=== PATIENT | male | born 1950 | race Caucasian/White ===

== ENCOUNTER 2016-09-16 09:47 | Emergency (ER) | payer MEDICARE, BC ==
[~2016-09-16] VITALS: Ht 177.8 cm; Wt 90.0 kg
[2016-09-16 09:52] VITALS: BP 166/105; PULSE 79; RESP 16; TEMP 98.2; O2SAT 98
[2016-09-16 10:15] LABS: BLOOD, URINE LARGE (NEG); GLUCOSE,URINE NEG (NEG); KETONE, URINE NEG (NEG); PH, URINE 5.5 (5.0-8.5)
[2016-09-16 10:18] LABS: METHOD OF COLLECTION CLEAN CATCH; NITRITE,URINE POS (NEG); URINE COLOR RED (YELLW/STRAW)
[2016-09-16 10:21] LABS: RBC, URINE INNUM /hpf (0-3); SQUAMOUS EPITHELIAL CELL URINE > 8 /hpf (0-5)
--- NOTE | 2016-09-16 10:21 | PD ---
HPI Chief Complaint: Complaint Time Seen by Provider: 10:06 Travel History International Travel<30 days: No Contact w/Intl Traveler<30days: No Traveled to known affect area: No History of Present Illness HPI 66 years old male complains of hematuria. Patient has history of BPH status post TURP procedure September 02, 2016 by urologist in [place]. Patient has history of atrial fibrillation on Xarelto. Patient started noticing hematuria since last night. Patient denies any headache. Patient denies any chest pain or shortness of breath. Patient denies abdominal pain. Patient denies any back pain. Patient denies any dysuria or frequency. Patient denies any fever chills. PFSH Past Medical History Hx Anticoagulant Therapy: Yes (XARELTO) Cardiovascular Problems: Yes (HTN, CHOL, A. FIB) Diabetes: Yes Social History Tobacco Use: No Allergies-Medications (Allergen,Severity, Reaction): Coded Allergies: No Known Allergies (Unverified , 09/16/16) Reported Meds & Prescriptions Reported Meds & Active Scripts Active Reported Lantus Inj (Insulin Glargine) 100 Unit/Ml Inj 60 Units SQ HS Tamsulosin (Tamsulosin HCl) 0.4 Mg Cap 0.4 Mg PO HS Nitroglycerin Patch 24 HR (Nitroglycerin) 0.1 Mg/Hr Patch 0.1 Mg T-DERMAL DAILY Omeprazole 20 Mg Tab 20 Mg PO DAILY Lovastatin 40 Mg Tab 40 Mg PO DAILY Metformin (Metformin HCl) 500 Mg Tab 500 Mg PO BIDPC With meals Xarelto (Rivaroxaban) 20 Mg Tab 20 Mg PO DAILY Metoprolol Tartrate 25 Mg Tab 25 Mg PO BID Review of Systems General / Constitutional: No: Fever Eyes: No: Visual changes HENT: No: Headaches Cardiovascular: No: Chest Pain or Discomfort Respiratory: No: Shortness of Breath Gastrointestinal: No: Abdominal Pain Genitourinary: Positive: Hematuria, No: Dysuria Musculoskeletal: No: Pain Skin: No Rash Neurologic: No: Weakness Psychiatric: No: Depression Endocrine: No: Polydipsia Hematologic/Lymphatic: No: Easy Bruising Physical Exam Narrative GENERAL: Well-nourished, well-developed patient. SKIN: Warm and dry. HEAD: Normocephalic. EYES: No scleral icterus. No injection or drainage. NECK: Supple, trachea midline. No JVD or lymphadenopathy. CARDIOVASCULAR: Regular rate and rhythm without murmurs, gallops, or rubs. RESPIRATORY: Breath sounds equal bilaterally. No accessory muscle use. GASTROINTESTINAL: Abdomen soft, non-tender, nondistended. MUSCULOSKELETAL: No cyanosis, or edema. BACK: Nontender without obvious deformity. No CVA tenderness. exam: No active bleeding from the urethra. No tenderness on palpation of the testicle. No scrotal swelling. Data Data Last Documented VS Vital Signs Date Time Temp Pulse Resp B/P Pulse Ox O2 Delivery O2 Flow Rate FiO2 09/16/16 11:45 90 14 159/105 99 09/16/16 09:52 98.2 Orders Urinalysis - C+S If Indicated (09/16/16 09:56) Complete Blood Count With Diff (09/16/16 10:15) Basic Metabolic Panel (Bmp) (09/16/16 10:15) Iv Access Insert/Monitor (09/16/16 10:15) Electrocardiogram (09/16/16 ) Prothrombin Time / Inr (Pt) (09/16/16 10:16) Act Partial Throm Time (Ptt) (09/16/16 10:16) Urine Culture (09/16/16 10:00) Labs Laboratory Tests Test 09/16/16 09/16/16 10:00 10:35 Urine Collection Type CLEAN CATCH Urine Color RED Urine Turbidity MARKED Urine pH 5.5 Urine Specific [place] 1.018 Urine Protein 300 OR GREATER mg/dL Urine Glucose (UA) NEG mg/dL Urine Ketones NEG mg/dL Urine Occult Blood LARGE Urine Nitrite POS Urine Bilirubin NEG Urine Leukocyte Esterase NEG Urine RBC INNUM /hpf Urine WBC 50-99 /hpf Urine Squamous Epithelial > 8 /hpf Cells Urine Yeast (Budding) MANY Microscopic Urinalysis Comment CULTURE INDICATED Urine Collection Time 10:00 White Blood Count 4.4 TH/MM3 Red Blood Count 4.09 MIL/MM3 Hemoglobin 12.5 GM/DL Hematocrit 37.4 % Mean Corpuscular Volume 91.5 FL Mean Corpuscular Hemoglobin 30.5 PG Mean Corpuscular Hemoglobin 33.3 % Concent Red Cell Distribution Width 13.3 % Platelet Count 240 TH/MM3 Mean Platelet Volume 7.8 FL Neutrophils (%) (Auto) 68.5 % Lymphocytes (%) (Auto) 15.9 % Monocytes (%) (Auto) 9.6 % Eosinophils (%) (Auto) 5.1 % Basophils (%) (Auto) 0.9 % Neutrophils # (Auto) 3.1 TH/MM3 Lymphocytes # (Auto) 0.7 TH/MM3 Monocytes # (Auto) 0.4 TH/MM3 Eosinophils # (Auto) 0.2 TH/MM3 Basophils # (Auto) 0.0 TH/MM3 CBC Comment DIFF FINAL Differential Comment Prothrombin Time 13.2 SEC Prothromb Time International 1.2 RATIO Ratio Activated Partial 33.4 SEC Thromboplast Time Sodium Level 141 MEQ/L Potassium Level 4.1 MEQ/L Chloride Level 108 MEQ/L Carbon Dioxide Level 24.1 MEQ/L Anion Gap 9 MEQ/L Blood Urea Nitrogen 23 MG/DL Creatinine 1.30 MG/DL Estimat Glomerular Filtration 55 ML/MIN Rate Random Glucose 92 MG/DL Calcium Level 8.8 MG/DL [facility] Medical Decision Making Medical Screen Exam Complete: Yes Emergency Medical Condition: Yes Interpretation(s) 10:54 AM. CBC WBC 4.4. Hemoglobin 12.5 hematocrit 37.4. Normal differential. UA positive with RBC, WBC and yeast. 11:24 AM. BMP within normal limit. BUN 23. INR 1.2. APTT 33.4. Differential Diagnosis Differential diagnosis including hematuria, urethritis, UTI, hemorrhagic cystitis. Narrative Course 66 years old male with hematuria. Status post TURP 2 weeks ago. Patient's on Xarelto for atrial fibrillation. I spoke with Dr. Hampton, urologist vocational aide. Advised to hold Xarelto for 2 days and continue with Xarelto subsequently. Patient is to follow-up with urologist. Diagnosis Primary Impression: Hematuria Additional Impression: Coagulopathy Patient Instructions: General Instructions Additional Instructions: Hold Xarelto for 2 days. Follow-up with urologist. Return if excessive bleeding, persistent bleeding, headache, chest pain shortness of breath, abdominal pain, fever. Med/Other Pt SpecificInfo: Med Stopped Disposition: 01 DISCHARGE HOME Condition: Stable Castillo Shah MD Sep 16, 2016 10:21
[2016-09-16 10:22] LABS: COMMENT (UR) CULTURE INDICATED; CULTURE IF INDICATED CULTURE INDICATED
[2016-09-16 10:43] LABS: AUTOMATED NEUTROPHIL # 3.1 TH/MM3 (1.8-7.7); BASOPHIL % 0.9 % (0.0-2.0); EOSINOPHIL # 0.2 TH/MM3 (0-0.4); EOSINOPHIL % 5.1 % (0.0-4.0); HEMATOCRIT 37.4 % (39.0-51.0); HEMO FLAGS DIFF FINAL; LYMPH % 15.9 % (9.0-44.0); LYMPHOCYTE # 0.7 TH/MM3 (1.0-4.8); MEAN CELL VOLUME 91.5 FL (80.0-100.0); MEAN CORPUSCULAR HEMOGLOBIN 30.5 PG (27.0-34.0); MEAN CORPUSCULAR HGB CONC 33.3 % (32.0-36.0); MONO % 9.6 % (0.0-8.0); NEUT % 68.5 % (16.0-70.0); PLATELET COUNT 240 TH/MM3 (150-450); RED BLOOD COUNT 4.09 MIL/MM3 (4.50-5.90); RED CELL DISTRIBUTION WIDTH 13.3 % (11.6-17.2); WHITE BLOOD COUNT 4.4 TH/MM3 (4.0-11.0)
[2016-09-16 10:53] LABS: POTASSIUM 4.1 MEQ/L (3.5-5.1)
[2016-09-16 10:56] LABS: APTT (PATIENT) 33.4 SEC (24.3-30.1); BICARBONATE 24.1 MEQ/L (21.0-32.0); INTERNATIONAL NORMALIZED RATIO 1.2 RATIO; PROTHROMBIN TIME - PATIENT 13.2 SEC (9.8-11.6)
[2016-09-16] MEDS ORDERED: LOVA40TA PO (11:03)
[2016-09-16] MEDS ORDERED: [UNRECOGNIZED DRUG - CODE] T-DERMAL (11:03)
[2016-09-16] MEDS ORDERED: XARE20TA PO (11:03)
[2016-09-16] MEDS ORDERED: TAMS0.4C4 PO (11:03)
[2016-09-16] MEDS ORDERED: METF500T PO (11:03)
[2016-09-16] MEDS ORDERED: OMEP20TA PO (11:03)
[2016-09-16] MEDS ORDERED: LANTUS2P SQ (11:03)
[2016-09-16] MEDS ORDERED: METO25TA3 PO (11:03)
[2016-09-16 11:45] VITALS: BP 159/105
--- NOTE | 2016-09-17 11:06 | EKG ---
Date Performed: 09/16/2016 Time Performed: 10:14:44 PTAGE: 66 years EKG: Atrial fibrillation with ventricular rate of 91 bpm Abnormal ECG NO PREVIOUS TRACING DOCTOR: Fly Valdes Interpretating Date/Time 09/17/2016 11:06:24
[2016-09-21] MEDS ORDERED: PROS5TAB PO (09:30)
[2016-09-21] MEDS ORDERED: BACT800T5 PO (10:19)
== END 2016-09-16 11:45 | disposition home or self-care (01) ==
LOC: PHED 09:47
DX: R31.9 Hematuria, unspecified (principal); D68.9 Coagulation defect, unspecified; I48.91 Unspecified atrial fibrillation; Z79.01 Long term (current) use of anticoagulants
CPT/HCPCS: 80048; 81001; 85025; 85610; 85730; 87086; 93005